=== PATIENT | female | born 1990 | race Caucasian/White ===

== ENCOUNTER 2018-07-21 22:04 | Emergency (ER) | payer SELFPAY ==
[~2018-07-21] VITALS: Ht 152.4 cm; Wt 90.9 kg
[~2018-07-21 22:04] MED LIST: BACTROBAN 22GM22 GM NAS; CELEXA 20MG20 MG/TAB PO; CEPHALEXIN500 M1 PO; NO HOME MEDICATIONS; NORCO 325 MG-51 TAB PO; PEN-VEE K500 MG PO
[2018-07-21 22:10] VITALS: BP 113/73; TEMP 97.4
[2018-07-21 23:10] LABS: COLLECTION METHOD CLEAN CATCH
[2018-07-21 23:12] LABS: BASO % 0.3 % (0.0-2.0); EOS % 0.3 % (0-4.0); GRAN # 10.8 (1.4-6.5); GRAN % 70.3 % (42.2-75.2); HEMATOCRIT 38.3 % (37.0-47.0); HEMOGLOBIN 12.7 g/dl (12.5-16.0); LYMPH # 3.6 (1.2-3.4); LYMPH % 23.4 % (20.0-51.0); MEAN CELL VOLUME 92 fl (80.0-100.0); MEAN CORPUSCULAR HEMOGLOBIN 31 pg (27.0-31.0); MEAN CORPUSCULAR HGB CONC 33 g/dl (33.0-37.0); MEAN PLATELET VOLUME 9.6 fl (7.4-10.4); MONO # 0.8 (0.1-0.6); MONO % 5.2 % (1.7-9.3); PLATELET COUNT 348 K/mm3 (130-400); RED BLOOD COUNT 4.16 M/mm3 (4.10-5.30); REDCELL DISTRIBUTION WIDTH-CV 12.5 % (11.5-14.5)
[2018-07-21 23:23] LABS: PH 6 (5-8); URINE APPEARANCE Clear; URINE BACTERIA None Seen /hpf; URINE BILIRUBIN Negative (NEGATIVE); URINE BLOOD Negative (NEGATIVE); URINE COLOR Straw; URINE GLUCOSE Negative (NEGATIVE); URINE KETONE Trace (NEGATIVE); URINE LEUKOCYTE ESTERASE 2+ (NEGATIVE); URINE NITRATE Negative (NEGATIVE); URINE PROTEIN(semi-quant) Negative (NEGATIVE); URINE RBC 0-2 /hpf; URINE UROBILINOGEN Negative (NEGATIVE)
[2018-07-21 23:25] LABS: BILIRUBIN,TOTAL 0.3 mg/dL (0.0-1.0); CALCIUM 9.2 mg/dL (8.4-10.2); CREATININE, serum 0.88 mg/dL (0.52-1.25); POTASSIUM 4.1 mmol/L (3.4-5.0); TOTAL PROTEIN 7.2 gm/dL (6.4-8.2)
[2018-07-22] MEDS ORDERED: CEFTIN 250250 MG/TAB PO (03:00)
[2018-07-22] MEDS ORDERED: ZOFRAN ODT4 MG PO (03:00)
[2018-07-22] MEDS ORDERED: PERCOCET 325 MG1 TA2 PO (03:00)
[2018-07-22 03:22] VITALS: PULSE 74
== END 2018-07-22 03:22 | disposition home or self-care (01) ==
LOC: COL.ER 22:04
PROVIDERS: Nurse Practitioner
DX: N20.1 Calculus of ureter (principal)
CPT/HCPCS: J1170; J1885; J2405; J2550; J7030; Q9967

== ENCOUNTER 2022-04-18 12:06 | Outpatient (CLI) | payer BC ==
[~2022-04-18] VITALS: Ht 157.5 cm; Wt 98.2 kg
[~2022-04-18 12:06] MED LIST changes: +CEFTIN 250250 MG/TAB PO; +PERCOCET 325 MG1 TA2 PO; +ZOFRAN ODT4 MG PO
--- NOTE | 2022-04-18 12:20 | NUR ---
1220-G1 36.[address] Almanza ambulatory to LDR 4 with complaint of cramping in perineum. Yesenia valenzuela is complicated by shortened cervix, she has a cerclage in place. Dr. Almanza notified. Orders to place patient on EFM and update with contraction activity. 1305-Dr. Almanza updated on strip. Orders recieved to discharge patient. 1330-Patient ambulatory off unit.
[2022-04-18 12:45] VITALS: BP 116/64; PULSE 102; TEMP 99
[2022-04-18 13:00] VITALS: BP 113/66; PULSE 99
[2022-04-18 13:10] VITALS: BP 90/51; PULSE 88; TEMP 98.6
[2022-04-18] MEDS ORDERED: PRENATAL (13:12)
[2022-04-18] MEDS ORDERED: LEXAPRO20 MG (13:13)
[2022-04-18] MEDS ORDERED: PROMETRIUM200 M1 PO (13:13)
== END 2022-04-18 13:30 | disposition home or self-care (01) ==
LOC: LDRO 12:06
DX: O62.9 Abnormality of forces of labor, unspecified (principal); Z3A.36 36 weeks gestation of pregnancy

== ENCOUNTER 2022-04-22 09:55 | Outpatient (CLI) | payer BC ==
[2022-04-22] VITALS (7 sets, daily range): BP systolic 90–107; BP diastolic 50–69; PULSE 80–103; TEMP 98–98.1
[~2022-04-22] VITALS: Ht 157.5 cm; Wt 98.2 kg
[~2022-04-22 09:55] MED LIST changes: +LEXAPRO20 MG; +PRENATAL; +PROMETRIUM200 M1 PO
--- NOTE | 2022-04-22 10:00 | NUR ---
1000-36.4 WEEK G1 patient of Dr. Almanza ambulatory to LDR 5 for scheduled removal of cervical cerclage. Rashidanthonyleon reports good FM, Denies LOF or vaginal bleeding. Reports some intermittent contractions and cramping. Assisted into gown, placed on EFM. Assessment complete. VSS. Consent for procedure reviewed and signed.
--- NOTE | 2022-04-22 10:27 | NUR ---
1027- to patient room. Discusses plan for cerlage removal with patient. Set up for procedure. Patient placed in stirps. 1044-Dr. Almanza confirms cerclage removed. Cervical exam by 4-/-2. Orders to monitor patient for an hour. Patient repositioned and updated on plan of care.
--- NOTE | 2022-04-22 11:30 | NUR ---
1130-Patient reports contractions intermittently and overall "crampy." States "some feel worse than before cerclage removal." Repositioned LL and encouarged oral hydration. Educated patienit on active labor pattern versus irritability/irregular contractions. Patient verbalizes understanding. Denies current needs. Will continue to monitor at this time.
--- NOTE | 2022-04-22 12:00 | NUR ---
1200-Patient reports "I have felt pretty good over the last 15-20 min. Denies contractions at this time. Updated on Dr. Almanza orders for discharge. Patient Agreeable with plan for discharge and denies questions. 1204-Paitent off EFM to change, Reviewed discharge instructions and follow up appt. with patient. 1216-Patient ambualtory off unit with spouse.
== END 2022-04-22 12:16 | disposition home or self-care (01) ==
LOC: LDRO 09:55 → LDR 10:17 → LDRO 12:08 → LDR 12:16 → LDRO 12:16
DX: O26.893 Other specified pregnancy related conditions, third trimester (principal); Z90.711 Acquired absence of uterus with remaining cervical stump; Z3A.36 36 weeks gestation of pregnancy
CPT/HCPCS: OP

== ENCOUNTER 2022-05-04 20:53 | Inpatient (IN) | payer BC ==
[~2022-05-04] VITALS: Ht 157.5 cm; Wt 97.7 kg
--- NOTE | 2022-05-04 21:00 | NUR ---
PT TO UNIT AMBULATORY WITH SPOUSE WITH COMPLAINTS OF VAGINAL BLEEDING AND IRREGULAR CTX. PT STATES SHE HAS HAD IRREGULAR CTX SINCE YESTERDAY BUT CAME IN DUE TO NOTICING BRIGHT BLOOD ON THE TOILET PAPER WHEN USING THE BATHROOM. PT ORIENTED TO ROOM, CHANGED INTO GOWN. EFM X2 APPLIED, VS OBTAINED, SVE PERFORMED.
[2022-05-04 21:30] VITALS: BP 106/60; PULSE 78; TEMP 98.3
[2022-05-05] VITALS (56 sets, daily range): BP systolic 86–122; BP diastolic 50–78; PULSE 67–93; TEMP 97.8–99.3
[2022-05-05 03:55] LABS: BASO % 0.3 % (0.0-2.0); EOS # 0.1 K/mm3 (0.0-0.7); EOS % 0.8 % (0.0-4.0); GRAN # 6.8 K/mm3 (1.4-6.5); HEMOGLOBIN 11.3 g/dl (12.5-16.0); LYMPH # 2.5 K/mm3 (1.2-3.4); LYMPH % 24.8 % (20.0-51.0); MEAN CELL VOLUME 93 fl (80.0-100.0); MEAN CORPUSCULAR HEMOGLOBIN 30 pg (27-31); MEAN CORPUSCULAR HGB CONC 32 g/dl (33.0-37.0); MONO # 0.6 K/mm3 (0.1-0.6); MONO % 6.1 % (1.7-9.3); PLATELET COUNT 219 K/mm3 (130-400); RED BLOOD COUNT 3.81 M/mm3 (4.10-5.30); REDCELL DISTRIBUTION WIDTH-CV 15.5 % (11.5-14.5)
--- NOTE | 2022-05-05 03:55 | NUR ---
0335- Bertin BALTAZAR CRNA IN ROOM FOR EPIDURAL PLACEMENT. 0336- PT SITTING UP AT BEDSIDE FOR EPIDURAL. DIFFICULTY TRACING FHTs DUE TO MATERNAL POSITION, FM AUDIBLE ON US. 0347- TEST DOSE GIVEN BY Bertin BALTAZAR CRNA, PT TOLERATED WELL. 0355- PT REPOSITIONED INTO SEMIFOWLERS.
[2022-05-05 04:11] LABS: HEMATOCRIT 35.3 % (37.0-47.0)
--- NOTE | 2022-05-05 06:30 | NUR ---
0630RN to bedside. Assessment completed. Plan of care reviewed with patient and spouse who verbalize understanding. Discussed position changes to promote decent/rotation. Pt agrees. 0655Side lying hip release right side. 0705Side lying hip release left side. 0715SVE /2, RUDDY. Pt left laterl with right leg stirrup. Pt resting comfortabley with call light within reach. 0720Phone call received from Dr. Tang. See physician notification.
--- NOTE | 2022-05-05 08:45 | NUR ---
0845Ctx not tracing. RN to bedside and adjusting toco.
--- NOTE | 2022-05-05 09:25 | NUR ---
0920Patient right with peanut ball. EFM adjusted. 0922Dr. Clyde on unit. Reviews FHR strips. 0925Dr. Clyde to patient bedside. Discusses plan of care with patient and spouse. 0930AROM by Dr. Tang for large amount of clear amniotic fluid. SVE per provider /2. Jelena care provided, pads changed, and pt wedge right with peanut ball. Resting with call light within reach.
--- NOTE | 2022-05-05 10:10 | NUR ---
1010Patient calls RN to room and reports sharp lower abdominal pain. Pt coached through breathing. Pt attempts pt controlled epidural bolus button. Pump not dosing. Bertin Alvarez CRNA notified and to bedside. Pt high fowlers wedge right. 1013Epidural ULTRASONIC TESTER dose given by Bertin Alvarez CRNA. Plan of care reviewed. Pt verbalizes understanding.
--- NOTE | 2022-05-05 11:15 | NUR ---
1115Patient in left lateral with peanut ball between knee/ankles.
--- NOTE | 2022-05-05 12:00 | NUR ---
1200Recurrent early decels with occasional variable and late decel. Pt right lateral. LR bolus given.
--- NOTE | 2022-05-05 12:15 | NUR ---
1215Recurrent late decels. Pt high right lateral. LR bolus initiated. 1230Recurrent late decels continue. Pt leonidas fowlers wedge left.
--- NOTE | 2022-05-05 12:40 | NUR ---
1240Late decels resolve.
--- NOTE | 2022-05-05 12:50 | NUR ---
1250 Dr. Tang to bedside. SVE per provider C/+2. Pt instructed on pushing with contractions. 1253 Catheter removed. Jelena care provided. Pt repositioned in stirrups. 1256Begins to push with contractions with RN at bedside. Strong maternal effort noted. Moves vertex well. 1315FHR 105bmp. Pt wedge left. 1320FHR baseline 105bmp with minimal variability. Dr. Tang at nurses desk and notified of FHR baseline and variability. Dr. Tang reviews EFM strips. RN returns to bedside and continue to push with pt. 1340Dr. Tang requested at bedside for delivery. 1345Spontaneous vaginal delivery of viable female . To mother's chest where dried and stimulated by nursery RN. Cord clamped x2 and cut by Dr. Tang. Infant to radiant warmer and care assumed by Lakshmi Kan RN. Cord gases obtained by Dr. Tang. 1350 Delivery of placenta. Trailing membranes noted. MEU by Dr. Tang. Pitocin to 333ml/hr per orders. Fundus firm, midline, and bleeding minimal. Left vaginal sidewall laceration repaired by Dr. Tang. 1407Straight cath by Dr. Tang. Jelena care provided, pads changed, and ice pack to perineum. Plan of care and safety precautions reviewed. See doctor dictation, anesthesia record, and nurses notes.
[2022-05-06 02:30] VITALS: BP 99/55; PULSE 77; TEMP 98
[2022-05-06 08:45] VITALS: BP 107/66; PULSE 77
[2022-05-06] MEDS ORDERED: IBU600 MG PO (11:30)
--- NOTE | 2022-05-06 15:30 | NUR ---
Discharge instructions and follow up care reviewed with pt and at the bedside. Both verbalized an understanding, agreed with the plan and states no questions or concerns at this time.
== END 2022-05-06 15:45 | disposition home or self-care (01) | DRG 805 ==
LOC: LDRO 20:53 → LDR 21:00 → LDRO 05-05 03:11 → LDR 05-05 03:12 → OB 05-05 16:50
PROVIDERS: Obstetrics & Gynecology; ADMIT Obstetrics & Gynecology
PROC: 10E0XZZ Delivery of Products of Conception, External Approach (ICD-10-PCS; principal; 2022-05-05)
PROC: 10D17Z9 Manual Extraction of Products of Conception, Retained, Via Natural or Artificial Opening (ICD-10-PCS; 2022-05-05)
PROC: 0UQG7ZZ Repair Vagina, Via Natural or Artificial Opening (ICD-10-PCS; 2022-05-05)
DX: O99.344 Other mental disorders complicating childbirth (principal); O34.33 Maternal care for cervical incompetence, third trimester; Z37.0 Single live birth; O71.4 Obstetric high vaginal laceration alone; O73.1 Retained portions of placenta and membranes, without hemorrhage; O34.593 Maternal care for other abnormalities of gravid uterus, third trimester; F32.A Depression, unspecified; F41.9 Anxiety disorder, unspecified; Z3A.38 38 weeks gestation of pregnancy; Z86.16 Personal history of COVID-19
CPT/HCPCS: OP; J2590; J7120